=== PATIENT | female | born 1955 | race Caucasian/White ===

== ENCOUNTER 2022-08-12 12:38 | Day surgery (SDC) | payer MEDICARE, OTHER ==
[2022-08-12] MEDS ORDERED: Xylocaine 1% Vial 30 ML PF IJ ONE (12:39)
[2022-08-12] MEDS ORDERED: Sodium Chloride 0.9(Preservative Free) 10 ML IJ ONE (12:39)
[2022-08-12] MEDS ORDERED: Depo-Medrol 40 MG/ML IM ONE (12:39)
[2022-08-12] MEDS ORDERED: DIPRIVAN 200 MG/20 ML IV ONE (15:02)
[2022-08-12] MEDS ORDERED: Lactated Ringers 1,000 ML IV ONE (17:03)
--- NOTE | 2022-08-12 19:35 | XRAY ---
Indication: Lumbar RYAN. Intraoperative fluoroscopy provided for 13 seconds. 3 digital spot submitted for interpretation demonstrates posterior needle tip projecting posterior to the L4-L5 interspace. Small amount of contrast injected for needle tip placement. Correlate with intraoperative findings/report.
--- NOTE | 2022-08-12 20:03 | XRAY ---
13 seconds fluoroscopy time in surgery for lumbar RYAN.
== END 2022-08-12 15:16 | disposition home or self-care (01) ==
LOC: SDC-PAIN 12:38
PROVIDERS: ATTEND Psychiatry & Neurology Pain Medicine
DX: M54.16 Radiculopathy, lumbar region (principal); Z79.899 Other long term (current) drug therapy
CPT/HCPCS: 62323; 72100; 77003; J1030; J2001; J2704; Q9966

== ENCOUNTER 2022-09-02 12:44 | Day surgery (SDC) | payer MEDICARE, OTHER ==
[2022-09-02] MEDS ORDERED: LIDOCAINE HCL 1% 50 MG/5 ML VL PF IJ ONE (12:45)
--- NOTE | 2022-09-02 14:49 | XRAY ---
Indication: Right knee injection. Intraoperative fluoroscopy provided for 6 seconds. Single digital spot image submitted for interpretation demonstrates needle tip projecting over the right femur intercondylar notch. Small amount of contrast injected for needle tip basement. Correlate with intraoperative findings/report.
--- NOTE | 2022-09-02 14:49 | XRAY ---
Indication: Left knee injection. Intraoperative fluoroscopy provided for 6 seconds. Single digital spot image submitted for interpretation demonstrates needle tip projecting over the left femur intercondylar notch. Small amount of contrast injected for needle tip basement. Correlate with intraoperative findings/report.
--- NOTE | 2022-09-02 15:15 | XRAY ---
6 seconds of fluoroscopy was used in surgery for a right intra-articular knee injection.
--- NOTE | 2022-09-02 15:15 | XRAY ---
6 seconds of fluoroscopy was used in surgery for a left intra-articular knee injection.
[2022-09-02] MEDS ORDERED: Lactated Ringers 1,000 ML IV ONE (15:19)
== END 2022-09-02 14:18 | disposition home or self-care (01) ==
LOC: SDC-PAIN 12:44
PROVIDERS: ATTEND Psychiatry & Neurology Pain Medicine
DX: M17.0 Bilateral primary osteoarthritis of knee (principal); Z79.899 Other long term (current) drug therapy
CPT/HCPCS: 20610; 73560; 77002; J2001; Q9966

== ENCOUNTER 2022-09-16 16:20 | Day surgery (SDC) | payer MEDICARE, OTHER ==
[2022-09-16] MEDS ORDERED: LIDOCAINE HCL 1% 50 MG/5 ML VL PF IJ ONE (16:21)
[2022-09-16] MEDS ORDERED: SYNVISC 16 MG/2 ML SYRINGE IU ONE (16:21)
--- NOTE | 2022-09-16 20:56 | XRAY ---
Indication: Left knee injection. Intraoperative fluoroscopy provided for 6 seconds. Single digital spot image submitted for interpretation demonstrates needle tip projecting over the left femur intercondylar notch. Small amount of contrast injected for needle tip placement. Correlate with intraoperative findings/report.
--- NOTE | 2022-09-16 20:57 | XRAY ---
Indication: Right knee injection. Intraoperative fluoroscopy provided for 5 seconds. Single digital spot image submitted for interpretation demonstrates needle tip projecting over the right femur intercondylar notch. Small amount of contrast injected for needle tip placement. Correlate with intraoperative findings/report.
--- NOTE | 2022-09-17 08:36 | XRAY ---
6 seconds of fluoroscopy was used in surgery for a left knee intra-articular injection.
--- NOTE | 2022-09-17 08:36 | XRAY ---
5 seconds of fluoroscopy was used in surgery for a right knee intra-articular injection.
== END 2022-09-16 19:25 | disposition home or self-care (01) ==
LOC: SDC-PAIN 16:20
PROVIDERS: ATTEND Psychiatry & Neurology Pain Medicine
DX: M17.0 Bilateral primary osteoarthritis of knee (principal); Z79.899 Other long term (current) drug therapy
CPT/HCPCS: 20610; 73560; 77002; 82947; J2001; J7325; Q9966

== ENCOUNTER 2022-09-23 08:12 | Day surgery (SDC) | payer MEDICARE, OTHER ==
[2022-09-23] MEDS ORDERED: SYNVISC 16 MG/2 ML SYRINGE IU ONE (08:13)
[2022-09-23] MEDS ORDERED: Xylocaine-Mpf 2% 5 Ml Vial ONE (09:40)
--- NOTE | 2022-09-23 10:18 | XRAY ---
Indication: Right knee injection. Intraoperative fluoroscopy provided for 10 seconds. Single digital spot image submitted for interpretation demonstrates needle tip projecting over the right femur intercondylar notch. Small amount of contrast injected for needle tip placement. Correlate with intraoperative findings/report.
--- NOTE | 2022-09-23 10:18 | XRAY ---
Indication: Left knee injection. Intraoperative fluoroscopy provided for 7 seconds. Single digital spot image submitted for interpretation demonstrates needle tip projecting over the left femur intercondylar notch. Small amount of contrast injected for needle tip placement. Correlate with intraoperative findings/report.
--- NOTE | 2022-09-23 10:24 | XRAY ---
7 seconds fluoroscopy time in surgery for intra-articular injection of the left knee.
--- NOTE | 2022-09-23 10:24 | XRAY ---
10 seconds fluoroscopy time in surgery for intra-articular injection of the right knee.
[2022-09-23] MEDS ORDERED: Lactated Ringers 1,000 ML IV ONE (11:33)
== END 2022-09-23 10:15 | disposition home or self-care (01) ==
LOC: SDC-PAIN 08:12
PROVIDERS: ATTEND Psychiatry & Neurology Pain Medicine
DX: M17.0 Bilateral primary osteoarthritis of knee (principal); Z79.899 Other long term (current) drug therapy
CPT/HCPCS: 20610; 73560; 77002; J7325; Q9966